=== PATIENT | male | born 1965 | race Caucasian/White ===

== ENCOUNTER 2023-06-30 23:14 | Emergency (ER) | payer OTHER ==
[~2023-06-30] VITALS: Ht 175.3 cm; Wt 81.6 kg
[2023-06-30] MEDS ORDERED: SODIUM BICARBONATE 4.2 % (NEUT) 5 ML VIAL ONE (23:44)
[2023-06-30] MEDS ORDERED: LIDOCAINE 1%-EPI 1:100,000 20 ML VIAL ONE (23:44)
[2023-06-30] MEDS ORDERED: LIDOCAINE 1%-EPI 1:100,000 20 ML VIAL IJ ONE (23:45)
[2023-06-30] MEDS ORDERED: SODIUM BICARBONATE 4.2 % (NEUT) 5 ML VIAL TP ONE (23:45)
[2023-07-01 01:49] VITALS: BP 152/87; O2SAT 91
[2023-07-02] MEDS ORDERED: CEPH500T PO (17:00)
[2023-07-02] MEDS ORDERED: SULF1TAB48 PO (17:00)
== END 2023-07-01 01:50 | disposition home or self-care (01) ==
LOC: ER 23:18
DX: L72.0 Epidermal cyst (principal); F17.210 Nicotine dependence, cigarettes, uncomplicated; Z71.6 Tobacco abuse counseling
CPT/HCPCS: 99284; 76942; 10060; 99406; J3490 ×2; A4663

== ENCOUNTER 2023-07-02 15:45 | Emergency (ER) | payer OTHER ==
[~2023-07-02] VITALS: Ht 175.3 cm; Wt 81.6 kg
[2023-07-02] MEDS ORDERED: NEOMY/BACITRA/POLYMYXIN B OINT UD PACKET TP ONE ×2 (16:15→17:23)
[2023-07-02] MEDS ORDERED: CEPH500T PO (17:00)
[2023-07-02] MEDS ORDERED: SULF1TAB48 PO (17:00)
[2023-07-02 17:33] VITALS: BP 144/89; TEMP 98.4; O2SAT 96
== END 2023-07-02 17:33 | disposition home or self-care (01) ==
LOC: ER 15:45
DX: L02.212 Cutaneous abscess of back [any part, except buttock and flank] (principal); F17.210 Nicotine dependence, cigarettes, uncomplicated
CPT/HCPCS: A4663